=== PATIENT | male | born 1985 ===

== ENCOUNTER 2021-10-02 09:57 | Inpatient (IN) | payer OTHER ==
[~2021-10-02] VITALS: Ht 193 cm; Wt 121.0 kg
[2021-10-02] MEDS ORDERED: GABA-1181 PO (10:11)
[2021-10-02 11:43] LABS: COVID AG,FIA SOURCE NASOPHARYNGEAL
[2021-10-02 12:04] LABS: BASOPHILS % (AUTO) 0.6 % (0.0-2.0); HEMATOCRIT 46.6 % (41-53); LYMPHOCYTES # (AUTO) 1.2 K/uL (1.0-4.8); LYMPHOCYTES % (AUTO) 15.3 % (22.0-44.0); MEAN CORPUSCULAR HEMOGLOBIN 28.9 pg (26.0-34.0); MEAN CORPUSCULAR HGB CONC 34.3 G/dL (31.0-37.0); MEAN CORPUSCULAR VOLUME 84 fL (80-100); MONOCYTES # (AUTO) 0.5 K/uL (0.1-1.0); MONOCYTES % (AUTO) 6.3 % (2.0-9.0); NEUTROPHILS # (AUTO) 5.9 K/uL (1.8-7.7); NEUTROPHILS % (AUTO) 76.8 % (40.0-70.0); PLATELET COUNT (AUTO) 238 K/uL (150-450); RED BLOOD CELL COUNT(AUTO) 5.54 MIL/uL (4.50-5.90); RED CELL DISTRIBUTION WIDTH 13.3 % (11.5-14.5)
[2021-10-02 12:08] LABS: ALANINE AMINOTRANSFERASE 49 U/L (12-78); ALBUMIN 4.4 g/dL (3.4-5.0); ALKALINE PHOSPHATASE 100 U/L (46-116); ANION GAP 9 mmol/L (8-16); ASPARTATE AMINOTRANSFERASE 16 U/L (15-37); BILIRUBIN,TOTAL 0.4 mg/dL (0.1-1.0); CALCIUM, TOTAL 9.3 mg/dL (8.8-10.5); CARBON DIOXIDE 30 mmol/L (22-29); CHLORIDE 102 mmol/L (98-107); CREATININE 0.82 mg/dL (0.60-1.30); GLOMERULAR FILTR. RATE CALC > 60 mL/min (>60); GLUCOSE,RANDOM 102 mg/dL (70-110); POTASSIUM 4.1 mmol/L (3.5-5.1); SODIUM SERUM 141 mmol/L (136-145); TOTAL PROTEIN, SERUM 8.2 g/dL (6.4-8.2); UREA NITROGEN, BLOOD 4 mg/dL (7-18)
[2021-10-02 12:21] LABS: AMPHET/METH SCREEN,URINE NEGATIVE (NEGATIVE); BARBITURATE SCREEN, URINE NEGATIVE (NEGATIVE); BENZODIAZEPINES SCREEN,URINE NEGATIVE (NEGATIVE); CANNABINOID SCREEN,URINE NEGATIVE (NEGATIVE); COCAINE SCREEN,URINE NEGATIVE (NEGATIVE); METHADONE SCREEN, URINE NEGATIVE (NEGATIVE); OPIATE SCREEN,URINE NEGATIVE (NEGATIVE)
[2021-10-02] MEDS ORDERED: ONDANSETRON HCL 4 MG/2 ML VIAL IVP ONE (12:45)
[2021-10-02] MEDS ORDERED: LORazepam 2 MG TABLET PO ONE (12:45)
[2021-10-02] MEDS ORDERED: CloNIDine HCL 0.1 MG TABLET PO ONE (12:45)
[2021-10-02 12:47] LABS: PHENCYCLIDINE SCREEN,URINE NEGATIVE (NEGATIVE)
[2021-10-02] MEDS ORDERED: 0.9% SODIUM CHLORIDE 10 ML SYRINGE IVP PRN (13:00)
[2021-10-02] MEDS ORDERED: ONDANSETRON HCL 4 MG/2 ML VIAL IVP PRN ×2 (13:00→15:45)
[2021-10-02] MEDS ORDERED: ACETAMINOPHEN 325 MG TABLET PO PRN ×3 (13:00→15:45)
[2021-10-02] MEDS ORDERED: MAG HYDROX/AL HYDROX/SIMETH ES 30 ML SUSPENSION UDCUP PO PRN (15:45)
[2021-10-02] MEDS ORDERED: DICYCLOMINE HCL 10 MG CAPSULE PO PRN (15:45)
[2021-10-02] MEDS ORDERED: MAGNESIUM HYDROXIDE SUSPENSION 30 ML UDCUP PO PRN (15:45)
[2021-10-02] MEDS ORDERED: PROMETHAZINE HCL 25 MG TABLET PO PRN (15:45)
[2021-10-02] MEDS ORDERED: IPRATROPIUM BROMIDE 0.5 MG/2.5 ML NEB SOLUTION NEB PRN (15:45)
[2021-10-02] MEDS ORDERED: TraZODone HCL 50 MG TABLET PO PRN (15:45)
[2021-10-02] MEDS ORDERED: HYDROCODONE/ACETAMINOPHEN 5-325 MG TABLET PO PRN (15:45)
[2021-10-02] MEDS ORDERED: LOPERAMIDE HCL 2 MG/15 ML SUSPENSION UDCUP PO PRN (15:45)
[2021-10-02] MEDS ORDERED: MORPHINE SULFATE 2 MG/ML SYRINGE IVP PRN (15:45)
[2021-10-02] MEDS ORDERED: BISACODYL 10 MG RECTAL RECTAL SUPPOSITORY PR PRN (15:45)
[2021-10-02] MEDS: SODIUM CHLORIDE 0.45% 1,000 ML IV SCH ×2 (15:45→17:08)
[2021-10-02] MEDS ORDERED: ALBUTEROL SULFATE 2.5 MG/0.5 ML NEB SOLUTION NEB PRN (15:45)
[2021-10-02] MEDS: HEPARIN SODIUM,PORCINE 5,000 UNITS/ML VIAL SQ SCH ×3 (16:00→23:25)
[2021-10-02 16:32] VITALS: BP 136/83
[2021-10-02] MEDS: LORazepam 1 MG TABLET PO PRN (17:09)
[2021-10-02 17:37] VITALS: BP 136/83
[2021-10-02 20:18] VITALS: BP 104/63
[2021-10-02] MEDS: ZOLPIDEM TARTRATE 5 MG TABLET PO PRN (20:38)
[2021-10-02] MEDS: DOCUSATE SODIUM 100 MG CAPSULE PO SCH (21:00)
[2021-10-03] MEDS: LORazepam 1 MG TABLET PO PRN ×3 (00:18→13:48)
[2021-10-03 00:27] VITALS: BP 125/74
[2021-10-03 04:38] VITALS: BP 145/72
[2021-10-03] MEDS: SODIUM CHLORIDE 0.45% 1,000 ML IV SCH ×2 (05:05→18:40)
[2021-10-03 07:50] VITALS: BP 121/75
[2021-10-03] MEDS: HEPARIN SODIUM,PORCINE 5,000 UNITS/ML VIAL SQ SCH ×2 (08:23→15:04)
[2021-10-03] MEDS: DOCUSATE SODIUM 100 MG CAPSULE PO SCH (08:23)
[2021-10-03] MEDS: PANTOPRAZOLE SODIUM 40 MG/VIAL IVP SCH (08:26)
[2021-10-03 11:45] VITALS: BP 142/92
[2021-10-03] MEDS: HydrOXYzine PAMOATE 50 MG CAPSULE PO PRN (11:50)
[2021-10-03] MEDS: CloNIDine HCL 0.1 MG TABLET PO PRN ×2 (11:50→20:57)
[2021-10-03] MEDS ORDERED: METHADONE HCL 10 MG TABLET PO ONE (14:45)
[2021-10-03 16:18] VITALS: BP 154/75
[2021-10-03 20:42] VITALS: BP 134/95
[2021-10-03] MEDS: BACLOFEN 10 MG TABLET PO PRN (20:57)
[2021-10-03] MEDS: ZOLPIDEM TARTRATE 5 MG TABLET PO PRN (20:58)
[2021-10-04 04:11] VITALS: BP 133/57
[2021-10-04] MEDS: SODIUM CHLORIDE 0.45% 1,000 ML IV SCH ×2 (07:45→21:05)
[2021-10-04 07:58] VITALS: BP 121/67
[2021-10-04] MEDS: HEPARIN SODIUM,PORCINE 5,000 UNITS/ML VIAL SQ SCH ×3 (08:00→16:00)
[2021-10-04] MEDS: MULTIVITAMINS WITH MINERALS, THERAPEUTIC TABLET PO SCH (08:29)
[2021-10-04] MEDS: CloNIDine HCL 0.1 MG TABLET PO PRN ×2 (08:29→14:51)
[2021-10-04] MEDS: HydrOXYzine PAMOATE 50 MG CAPSULE PO PRN ×2 (08:29→14:51)
[2021-10-04] MEDS: PANTOPRAZOLE SODIUM 40 MG/VIAL IVP SCH (08:30)
[2021-10-04] MEDS ORDERED: METHADONE HCL 10 MG TABLET PO ONE (09:00)
[2021-10-04 16:21] VITALS: BP 123/61
[2021-10-04 19:55] VITALS: BP 127/60
[2021-10-04] MEDS: ZOLPIDEM TARTRATE 5 MG TABLET PO PRN (21:20)
[2021-10-04] MEDS: BACLOFEN 10 MG TABLET PO PRN (21:20)
[2021-10-05] MEDS: HEPARIN SODIUM,PORCINE 5,000 UNITS/ML VIAL SQ SCH ×4 (00:27→20:19)
[2021-10-05 04:36] VITALS: BP 120/64
[2021-10-05] MEDS: HydrOXYzine PAMOATE 50 MG CAPSULE PO PRN ×3 (08:04→20:19)
[2021-10-05] MEDS: CloNIDine HCL 0.1 MG TABLET PO PRN ×2 (08:04→14:05)
[2021-10-05] MEDS: MULTIVITAMINS WITH MINERALS, THERAPEUTIC TABLET PO SCH (08:04)
[2021-10-05] MEDS: PANTOPRAZOLE SODIUM 40 MG/VIAL IVP SCH (08:06)
[2021-10-05 08:10] VITALS: BP 148/78
[2021-10-05] MEDS ORDERED: METHADONE HCL 10 MG TABLET PO ONE (09:00)
[2021-10-05] MEDS: SODIUM CHLORIDE 0.45% 1,000 ML IV SCH ×2 (10:25→23:45)
[2021-10-05] MEDS: GABAPENTIN 300 MG CAPSULE PO PRN (10:54)
[2021-10-05 12:06] VITALS: BP 103/50
[2021-10-05 16:14] VITALS: BP 121/71
[2021-10-05 19:53] VITALS: BP 113/58
[2021-10-05] MEDS: IBUPROFEN 600 MG TABLET PO PRN (20:19)
[2021-10-05] MEDS: ZOLPIDEM TARTRATE 10 MG TABLET PO PRN (20:19)
[2021-10-05 23:53] VITALS: BP 113/71
[2021-10-06 03:53] VITALS: BP 122/70
[2021-10-06 07:48] VITALS: BP 101/49
[2021-10-06] MEDS: HydrOXYzine PAMOATE 50 MG CAPSULE PO PRN ×2 (08:08→15:19)
[2021-10-06] MEDS: HEPARIN SODIUM,PORCINE 5,000 UNITS/ML VIAL SQ SCH ×3 (08:08→23:12)
[2021-10-06] MEDS: CloNIDine HCL 0.1 MG TABLET PO PRN ×2 (08:08→14:03)
[2021-10-06] MEDS: MULTIVITAMINS WITH MINERALS, THERAPEUTIC TABLET PO SCH (08:08)
[2021-10-06] MEDS: PANTOPRAZOLE SODIUM 40 MG/VIAL IVP SCH (08:09)
[2021-10-06] MEDS ORDERED: METHADONE HCL 10 MG TABLET PO ONE (09:00)
[2021-10-06] MEDS: GABAPENTIN 300 MG CAPSULE PO PRN ×2 (09:15→20:03)
[2021-10-06] MEDS: SODIUM CHLORIDE 0.45% 1,000 ML IV SCH (13:05)
[2021-10-06] MEDS: BACLOFEN 10 MG TABLET PO PRN (14:02)
[2021-10-06] MEDS: IBUPROFEN 600 MG TABLET PO PRN ×2 (14:03→20:04)
[2021-10-06 14:06] VITALS: BP 116/70
[2021-10-06 15:34] VITALS: BP 111/55
[2021-10-06 20:00] VITALS: BP 122/59
[2021-10-06] MEDS: ZOLPIDEM TARTRATE 10 MG TABLET PO PRN (20:02)
[2021-10-06 23:26] VITALS: BP 103/48
[2021-10-07] MEDS: SODIUM CHLORIDE 0.45% 1,000 ML IV SCH ×2 (02:25→15:45)
[2021-10-07 04:25] VITALS: BP 110/59
[2021-10-07 07:28] VITALS: BP 145/60
[2021-10-07] MEDS: HEPARIN SODIUM,PORCINE 5,000 UNITS/ML VIAL SQ SCH ×3 (08:00→23:52)
[2021-10-07] MEDS: GABAPENTIN 300 MG CAPSULE PO PRN ×2 (08:50→17:30)
[2021-10-07] MEDS: HydrOXYzine PAMOATE 50 MG CAPSULE PO PRN ×2 (08:50→15:01)
[2021-10-07] MEDS: MULTIVITAMINS WITH MINERALS, THERAPEUTIC TABLET PO SCH (08:50)
[2021-10-07] MEDS: BACLOFEN 10 MG TABLET PO PRN ×2 (08:51→17:30)
[2021-10-07] MEDS ORDERED: METHADONE HCL 10 MG TABLET PO ONE (09:00)
[2021-10-07] MEDS: PANTOPRAZOLE SODIUM 40 MG/VIAL IVP SCH (09:00)
[2021-10-07] MEDS ORDERED: LORazepam 1 MG TABLET PO PRN (09:00)
[2021-10-07] MEDS: CloNIDine HCL 0.1 MG TABLET PO PRN ×2 (10:26→13:51)
[2021-10-07 13:52] VITALS: BP 135/85
[2021-10-07] MEDS: IBUPROFEN 600 MG TABLET PO PRN ×2 (15:04→20:33)
[2021-10-07 15:23] VITALS: BP 117/68
[2021-10-07 20:07] VITALS: BP 110/56
[2021-10-07] MEDS: ZOLPIDEM TARTRATE 10 MG TABLET PO PRN (20:31)
[2021-10-07 23:22] VITALS: BP 130/63
[2021-10-08 04:49] VITALS: BP 107/66
[2021-10-08] MEDS: SODIUM CHLORIDE 0.45% 1,000 ML IV SCH (05:05)
[2021-10-08] MEDS: HEPARIN SODIUM,PORCINE 5,000 UNITS/ML VIAL SQ SCH (08:00)
[2021-10-08] MEDS: MULTIVITAMINS WITH MINERALS, THERAPEUTIC TABLET PO SCH (08:02)
[2021-10-08] MEDS: GABAPENTIN 300 MG CAPSULE PO PRN (08:02)
[2021-10-08] MEDS: BACLOFEN 10 MG TABLET PO PRN (08:02)
[2021-10-08] MEDS: HydrOXYzine PAMOATE 50 MG CAPSULE PO PRN (08:03)
[2021-10-08 08:15] VITALS: BP 133/69
[2021-10-08] MEDS: PANTOPRAZOLE SODIUM 40 MG/VIAL IVP SCH (09:00)
[2021-10-08 11:39] VITALS: BP 138/77
== END 2021-10-08 14:59 | DRG 897 ==
LOC: EMS 10:00 → 6S 15:03
PROVIDERS: ADMIT Hospitalist; ATTEND Hospitalist
DX: F11.23 Opioid dependence with withdrawal (principal); Z20.822 Contact with and (suspected) exposure to COVID-19; F43.10 Post-traumatic stress disorder, unspecified; F17.210 Nicotine dependence, cigarettes, uncomplicated
CPT/HCPCS: 80053; 85025; 99285; C9113; G0480; J1644; J2405